=== PATIENT | female | born 1985 | race Caucasian/White ===

== ENCOUNTER 2019-10-07 13:17 | Emergency (ER) | payer MEDICAID, OTHER ==
[~2019-10-07] VITALS: Ht 160 cm; Wt 69.7 kg
--- NOTE | 2019-10-07 14:17 | NUR ---
Notified [facility] regarding possible need to SART kit. [facility] notified and spoke with Joe regarding a need for an advocate. Will be calling back shortly.
[2019-10-07] MEDS ORDERED: metroNIDAZOLE 500mg tablet PO ONE (17:10)
[2019-10-07] MEDS ORDERED: azithromycin 250mg tablet PO ONE (17:10)
[2019-10-07] MEDS ORDERED: CefTRIAXone 250MG IM Kit w/LIDOcaine IM ONE (17:10)
[2019-10-07 17:27] LABS: URINE AMPHETAMINE SCREEN POSITIVE (Neg); URINE BARBITUATE SCREEN NEGATIVE (Neg); URINE BENZODIAZEPINES SCREEN NEGATIVE (Neg); URINE CANNABINOID SCREEN POSITIVE (Neg); URINE COCAINE SCREEN NEGATIVE (Neg); URINE METHADONE SCREEN NEGATIVE (Neg); URINE OPIATE SCREEN NEGATIVE (Neg); URINE PHENCYCLIDINE SCREEN NEGATIVE (Neg)
--- NOTE | 2019-10-07 23:00 | NUR ---
1615: Report received from MAR Cameron; room readied; STEPHANY Stokes observer to be included. STD med list faxed to pharmacy after discussing w/ danica Vang. 1635: Pt gave verbal consent for SART exam. Robby, [facility] pt advocate present. 1645: Written consent for SART exam obtained. Urine obtained. SART exam started. 1830: Pt educated about prophylactic STD medications. She refused. Pt educated about importance of [facility] f/u in 2 wks. Pt verbalized understanding. 1845: Pt medically cleared post assessment by DANICA Vang 1855: Pt showered. 191: Pt dc'd w/ safe POC including lodging @ [facility], by [facility]. Pt ambulated on her own to lobby with belongings to await taxi, accompanied by Ghislaine Stokes, and this RN.
--- NOTE | 2019-10-07 23:00 | NUR ---
VM left with LORNE Stock, re: pt f/u testing needs.
[2019-10-07 23:30] VITALS: BP 124/75
== END 2019-10-07 19:15 | disposition home or self-care (01) ==
LOC: ER 13:18
DX: T76.21XA Adult sexual abuse, suspected, initial encounter (principal); X58.XXXA Exposure to other specified factors, initial encounter; Y93.89 Activity, other specified; Y92.89 Other specified places as the place of occurrence of the external cause; Y99.8 Other external cause status
CPT/HCPCS: 80305; 99283; 99284

== ENCOUNTER 2020-01-07 17:13 | Emergency (ER) | payer MEDICAID, OTHER ==
[~2020-01-07] VITALS: Ht 157.5 cm; Wt 63.6 kg
[2020-01-07 17:15] VITALS: BP 107/73
[2020-01-07] MEDS ORDERED: hydrocort. acetate/pramoxine 10gm bottle RC STA (18:30)
[2020-01-07] MEDS ORDERED: triamcinolone acetonide 40mg/ml inj IM ONE (18:30)
[2020-01-07] MEDS ORDERED: hydrocort. acetate/pramoxine 10gm bottle RC PRN (19:00)
== END 2020-01-07 19:24 | disposition home or self-care (01) ==
LOC: ER 17:13
DX: L23.7 Allergic contact dermatitis due to plants, except food (principal); Z59.0 Homelessness
CPT/HCPCS: 96372; 99283; J3301

== ENCOUNTER 2020-01-10 02:24 | Emergency (ER) | payer MEDICAID ==
[~2020-01-10] VITALS: Ht 157.5 cm; Wt 65.0 kg
[2020-01-10 02:32] VITALS: BP 101/63
[2020-01-10] MEDS ORDERED: naproxen 500mg tablet PO ONE (02:35)
[2020-01-10] MEDS ORDERED: triamcinolone acetonide 40mg/ml inj IM ONE (02:45)
[2020-01-10] MEDS ORDERED: triamcinolone acet 0.1% cream 15gm TP SCH (02:45)
[2020-01-10] MEDS ORDERED: cephalexin 500mg capsule PO ONE (02:45)
[2020-01-10] MEDS ORDERED: diphenhydrAMINE 25mg capsule PO ONE (02:45)
[2020-01-10] MEDS ORDERED: CEPH250T PO (02:46)
[2020-01-10] MEDS ORDERED: DIPH25CA83 PO (02:46)
[2020-01-10] MEDS ORDERED: TRIA15CR61 TOP (02:46)
== END 2020-01-10 03:15 | disposition home or self-care (01) ==
LOC: ER 02:24
DX: L23.7 Allergic contact dermatitis due to plants, except food (principal); L03.317 Cellulitis of buttock; M79.605 Pain in left leg; Z59.0 Homelessness; Z79.899 Other long term (current) drug therapy
CPT/HCPCS: 96372; 99284; J3301; Q0163

== ENCOUNTER 2020-03-05 00:12 | Emergency (ER) | payer MEDICAID ==
[~2020-03-05] VITALS: Ht 157.5 cm; Wt 68.2 kg
[~2020-03-05 00:12] MED LIST: DIPH25CA83 PO
[2020-03-05] MEDS ORDERED: ketorolac trometh. 30mg/ml inj. IM ONE (00:55)
[2020-03-05] MEDS ORDERED: IBUP-1984 PO (01:02)
[2020-03-05 01:31] VITALS: BP 105/78
== END 2020-03-05 01:34 | disposition home or self-care (01) ==
LOC: ER 00:13
DX: M25.561 Pain in right knee (principal); F12.10 Cannabis abuse, uncomplicated; Z59.0 Homelessness; Z79.899 Other long term (current) drug therapy; V49.9XXA Car occupant (driver) (passenger) injured in unspecified traffic accident, initial encounter; Y93.89 Activity, other specified; Y92.89 Other specified places as the place of occurrence of the external cause; Y99.8 Other external cause status
CPT/HCPCS: 29505; 73564; 96372; 99283; J1885

== ENCOUNTER 2020-11-21 17:06 | Emergency (ER) | payer MEDICAID ==
[~2020-11-21] VITALS: Ht 157.5 cm; Wt 66.0 kg
[2020-11-21 17:20] VITALS: BP 105/60
== END 2020-11-21 23:50 | disposition left against medical advice (07) ==
LOC: ER 17:07
DX: L08.9 Local infection of the skin and subcutaneous tissue, unspecified (principal); Z53.21 Procedure and treatment not carried out due to patient leaving prior to being seen by health care provider

== ENCOUNTER 2020-12-25 21:43 | Emergency (ER) | payer MEDICAID ==
[~2020-12-25] VITALS: Ht 157.5 cm; Wt 54.5 kg
--- NOTE | 2020-12-25 21:59 | NUR ---
DISREGARD FIRST TRIAGE ASSESSMENT
[2020-12-25 22:08] VITALS: BP 126/82
--- NOTE | 2020-12-25 22:54 | NUR ---
DISREGARD LABS, THEY HAVE BEEN CANCELED
== END 2020-12-26 03:35 | disposition left against medical advice (07) ==
LOC: ER 21:43
DX: R21 Rash and other nonspecific skin eruption (principal); Z53.21 Procedure and treatment not carried out due to patient leaving prior to being seen by health care provider

== ENCOUNTER 2020-12-29 07:17 | Emergency (ER) | payer MEDICAID ==
[~2020-12-29] VITALS: Ht 157.5 cm; Wt 63.0 kg
[2020-12-29 07:18] VITALS: BP 89/50
[2020-12-29] MEDS ORDERED: NEOM10DR45 EACH EAR (07:41)
[2020-12-29] MEDS ORDERED: SULF1TAB45 PO (07:41)
== END 2020-12-29 07:47 | disposition home or self-care (01) ==
LOC: ER 07:17
DX: H60.91 Unspecified otitis externa, right ear (principal); A49.02 Methicillin resistant Staphylococcus aureus infection, unspecified site; H92.01 Otalgia, right ear; F12.90 Cannabis use, unspecified, uncomplicated; Z59.0 Homelessness; Z79.2 Long term (current) use of antibiotics; Z79.899 Other long term (current) drug therapy
CPT/HCPCS: 99283

== ENCOUNTER 2021-05-16 15:54 | Emergency (ER) | payer MEDICAID ==
[~2021-05-16] VITALS: Ht 157.5 cm; Wt 54.5 kg
[2021-05-16 17:18] VITALS: BP 104/74
[2021-05-16] MEDS ORDERED: acetaminophen 325mg tablet PO ONE (18:55)
== END 2021-05-16 19:00 | disposition home or self-care (01) ==
LOC: ER 15:55
DX: J06.9 Acute upper respiratory infection, unspecified (principal); Z20.822 Contact with and (suspected) exposure to COVID-19; B34.9 Viral infection, unspecified; R50.9 Fever, unspecified; F12.90 Cannabis use, unspecified, uncomplicated; Z59.00 Homelessness unspecified; Z79.899 Other long term (current) drug therapy
CPT/HCPCS: 87635; 99283; C9803